=== PATIENT | male | born 1965 | race African-American/Black ===

== ENCOUNTER 2023-02-16 14:44 | Emergency (ER) | payer OTHER ==
[~2023-02-16] VITALS: Ht 175.3 cm; Wt 91.3 kg
[2023-02-16 14:45] VITALS: TEMP 97.2
[2023-02-16] MEDS ORDERED: ACETAMINOPHEN TAB 650MG DOSE (2X325MG) PO ONE (18:05)
[2023-02-16] MEDS ORDERED: methocarbamoL 500 MG TAB PO ONE (18:05)
[2023-02-16] MEDS ORDERED: LIDOCAINE 2% MDV 20ML VIAL SC ONE (18:20)
[2023-02-16] MEDS ORDERED: CEPHALEXIN 500 MG CAP PO ONE (18:20)
[2023-02-16] MEDS ORDERED: LIDOCAINE 1% MDV 20ML VIAL SC ONE (19:15)
[2023-02-16] MEDS ORDERED: METH-1164 PO (19:34)
[2023-02-16] MEDS ORDERED: IBUP-1022 PO (19:34)
[2023-02-16 19:44] VITALS: BP 151/97; O2SAT 99
== END 2023-02-16 19:46 | disposition home or self-care (01) ==
LOC: M ED 14:44
DX: S13.4XXA Sprain of ligaments of cervical spine, initial encounter (principal); S40.011A Contusion of right shoulder, initial encounter; W01.0XXA Fall on same level from slipping, tripping and stumbling without subsequent striking against object, initial encounter; Y92.009 Unspecified place in unspecified non-institutional (private) residence as the place of occurrence of the external cause; Y93.01 Activity, walking, marching and hiking; Y99.8 Other external cause status; E11.9 Type 2 diabetes mellitus without complications; Z79.899 Other long term (current) drug therapy

== ENCOUNTER → 2023-04-11 | Outpatient (REF) | payer OTHER ==
[~2023-04-11] MED LIST: IBUP-1022 PO; METH-1164 PO
[2023-04-11 18:24] LABS: BASO % 0.4 % (0.0-1.0); EOS # 0.1 10^3/uL (0.0-0.5); EOS % 1.1 % (0.0-3.0); LYMPH # 1.3 10^3/uL (1.5-5.0); LYMPH % 24.1 % (24.0-44.0); MEAN CORPUSCULAR HEMOGLOBIN 28.6 pg (27.0-33.0); MEAN CORPUSCULAR HGB CONC 32.5 g/dl (32.0-36.5); MEAN CORPUSCULAR VOLUME 88.1 fl (80.0-96.0); MONO # 0.6 10^3/uL (0.0-0.8); NEUTROPHILS # 3.3 10^3/uL (1.5-8.5); NEUTROPHILS % 63.2 % (36.0-66.0); PLATELET COUNT, AUTOMATED 169 10^3/uL (150-450); RED BLOOD COUNT 4.54 10^6/uL (4.30-6.10); WHITE BLOOD COUNT 5.3 10^3/uL (4.0-10.0)
[2023-04-11 18:56] LABS: THYROID STIMULATING HORMONE 0.824 uIU/ML (0.55-4.78); TOTAL 25(OH) VITAMIN D 30.7 NG/ML (20.0-100.0)
[2023-04-11 18:58] LABS: ALBUMIN 3.6 G/DL (3.2-5.2); ALKALINE PHOSPHATASE 63 U/L (46-116); ALT/SGPT 29 U/L (7.0-40); AST/SGOT 24 U/L (<34); BILIRUBIN,TOTAL 0.6 MG/DL (0.3-1.2); BLOOD UREA NITROGEN 22 MG/DL (9-23); CALCIUM LEVEL 9.4 MG/DL (8.5-10.1); CARBON DIOXIDE LEVEL 26 MMOL/L (20-31); CHLORIDE LEVEL 102 MMOL/L (98-107); CHOLESTEROL LEVEL 170 MG/DL (<200); CREATININE FOR GFR 1.11 MG/DL (0.70-1.30); GLOMERULAR FILTRATION RATE > 60.0 (>56); GLUCOSE, FASTING 318 MG/DL (60-100); HDL CHOLESTEROL 39.5 MG/DL (>40); LDL CHOLESTEROL 113.5 MG/DL (<100); NON-HDL-C 130.5 MG/DL; POTASSIUM SERUM 4.8 MMOL/L (3.5-5.1); SODIUM LEVEL 136 MMOL/L (136-145); TOTAL PROTEIN 6.8 G/DL (5.7-8.2); TRIGLYCERIDES LEVEL 85 MG/DL (<150)
== END ==
LOC: M LAB REF 17:53
PROVIDERS: ATTEND Nurse Practitioner Family
DX: E66.3 Overweight (principal); E55.9 Vitamin D deficiency, unspecified; R53.83 Other fatigue; Z11.9 Encounter for screening for infectious and parasitic diseases, unspecified

== ENCOUNTER → 2023-07-21 | Outpatient (REF) | payer OTHER ==
[2023-07-21 17:56] LABS: HEMOGLOBIN A1c 12.1 % (4.0-6.0)
[2023-07-21 17:56] LABS: CREATININE, URINE 68.9 MG/DL; CREATININE,RANDOM URINE 68.9 MG/DL
[2023-07-21 17:57] LABS: MAU/CREAT RATIO 101.5 MCG/MG (0.0-30.0)
== END ==
LOC: M LAB REF 17:13
PROVIDERS: ATTEND Nurse Practitioner Family
DX: E11.8 Type 2 diabetes mellitus with unspecified complications (principal)